=== PATIENT | female | born 1980 | race Caucasian/White ===

== ENCOUNTER → 2024-02-02 | Outpatient (CLI) | payer OTHER ==
[2024-02-02 16:24] LABS: BASO # 0.02 K/mm3 (0.02-0.10); EOS # 0.13 K/mm3 (0.04-0.40); EOS % 1.6 % (1.0-5.0); HEMATOCRIT 43.3 % (37.0-47.0); HEMOGLOBIN 14.2 g/dL (12.5-16.0); LYMPH# 1.87 K/mm3 (1.50-4.00); MEAN CELL VOLUME 95 fl (78-100); MEAN CORPUSCULAR HEMOGLOBIN 31 pg (27-31); MEAN CORPUSCULAR HGB CONC 33 g/dL (33-37); MEAN PLATELET VOLUME 9.2 fl (7.4-10.4); MONO # 0.52 K/mm3 (0.20-0.80); NEU # 5.43 K/mm3 (1.40-6.50); PLATELET COUNT 289 K/mm3 (130-400); RED BLOOD COUNT 4.57 M/mm3 (4.10-5.30); RED CELL DISTRIBUTION WIDTH 11.7 % (11.5-14.5)
[2024-02-02 16:33] LABS: ALBUMIN 4.5 g/dL (3.5-5.0); SODIUM 140 mmol/L (136-145)
[2024-02-02 16:36] LABS: GLUCOSE 81 mg/dL (65-105); TOTAL PROTEIN 6.9 g/dL (6.4-8.3)
[2024-02-02 16:37] LABS: CARBON DIOXIDE 21 mmol/L (22-29); TOTAL BILIRUBIN 0.4 mg/dL (0.2-1.2)
[2024-02-02 16:41] LABS: AST-SGOT 21 U/L (5-34)
[2024-02-02 16:42] LABS: ALT/SGPT 14 U/L (0-55)
[2024-02-04 10:59] LABS: ANA SCREEN with REFLEX Negative (Negative)
[2024-02-06 05:38] LABS: ANTI-CYC CITRULLINATED PEPT AB 5 units (0-19)
== END ==
LOC: LAB 16:10
PROVIDERS: Internal Medicine
DX: M35.9 Systemic involvement of connective tissue, unspecified (principal); E78.2 Mixed hyperlipidemia

== ENCOUNTER → 2024-03-17 | Outpatient (CLI) | payer OTHER | LOC: MAMMO 08:30 | DX: Z12.31 Encounter for screening mammogram for malignant neoplasm of breast (principal) ==

== ENCOUNTER → 2024-06-17 | Outpatient (CLI) | payer OTHER ==
[2024-06-17 09:20] LABS: CLUE CELLS NOT OBSERVED (Not Observd)
== END ==
LOC: LAB 08:34
PROVIDERS: Nurse Practitioner Family
DX: N89.8 Other specified noninflammatory disorders of vagina (principal)
CPT/HCPCS: Q0111